=== PATIENT | female | born 1975 | race Caucasian/White ===

== ENCOUNTER 2020-05-25 19:12 | Observation (INO) | payer OTHER, SELFPAY ==
[2020-05-17 14:02] VITALS: BMI 21.4
[2020-05-25 19:12] VITALS: BP 160/106; PULSE 68; RESP 18; TEMP 37; O2SAT 100; BMI 21.6
--- NOTE | 2020-05-25 19:33 | CT_ITS ---
STUDY: CT ABDOMEN AND PELVIS WITHOUT CONTRAST REASON FOR EXAM: Female, 44 years old. RT FLANK PAIN. HEMATURIA. HX OF APPY AND TUBAL LIGATION RADIATION DOSAGE (If Supplied By Facility): CTDIvol = ( 6.53 ) mGy, DLP = ( 300.07 ) mGycm TECHNIQUE: Transaxial images were obtained from the dome of the diaphragm to the symphysis pubis without oral contrast, and without intravenous contrast. Sagittal and coronal images were reconstructed. Individualized dose optimization techniques were used for this CT. COMPARISON: None. FINDINGS: The visualized lung bases are unremarkable. The visualized portions of the heart are within normal limits. Normal liver. Normal gallbladder and extrahepatic biliary system. There is mild splenomegaly. Normal pancreas. Normal bilateral adrenal glands. There is a 0.2 cm stone of the right kidney. There is mild right hydronephrosis. There is a 0.4 cm stone of the right ureter at the L5-S1 level, series 2 image 81/165. Normal left kidney. Normal visualized stomach. Normal small intestine. Normal colon. The appendix is visualized and appears normal. There is atherosclerotic calcification of the abdominal aorta, without a demonstrated aneurysm. Normal inferior vena cava. Normal retroperitoneum. Normal urinary bladder. Normal visualized uterus. There is no free fluid in the abdomen or pelvis. Normal abdominal wall. Normal osseous structures. CT/Abdomen/Pelvis without Cont IMPRESSION: Right renal and ureteral stones with hydronephrosis. Electronically Signed: Dennis Newman MD at 20:11 EDT , Service support ,
[2020-05-25] MEDS: Ondansetron 4 MG/2 ML Vial IV ×2 (19:44→22:00)
[2020-05-25] MEDS: Morphine 4 MG/ML Syringe IV ×2 (19:44→20:30)
[2020-05-25] MEDS: Ketorolac 30 MG/ML Syringe IV (19:44)
--- NOTE | 2020-05-25 20:11 | ED.VISSUMM ---
- ER Visit Summary Date of Service: 05/25/20 Chief Complaint: Right flank pain History of Present Illness: The patient is a 44 F presenting with right flank pain. Patient states this started suddenly today. She complains of nausea vomiting. She noticed blood in her urine. She has a history of kidney stones. She states her previous kidney stone occurred during . She does not recall if this feels similar. She has pain in her right low back radiating to her right lower quadrant. History of previous appendectomy. Physical Examination: Vitals are stable. Patient is afebrile. Alert no acute distress. HEENT exam is unremarkable. Neck is supple. Lungs are clear and equal bilaterally. Heart is regular rate and rhythm. Abdomen is soft nontender nondistended. No guarding or rebound Back: Right CVA tenderness Extremities are unremarkable. Skin is warm and dry. Remainder of exam is unremarkable. Emergency Department Course and Treatment: Patient given morphine, Zofran, Toradol IV. CT flank shows right renal and ureteral stones with hydronephrosis. Patient continues to have pain and was given additional dose of morphine. CBC, chemistries unremarkable. Urinalysis shows over 100 red blood cells, 0-5 white blood cells. Patient continues to have vomiting and was given additional dose of Zofran. Due to her continued pain and vomiting discussed with Dr. Aguilar for admission. Disposition: Admission Impression: Urolithiasis This note was generated with [employer] dictation software. It may contain incorrect words, spelling, and punctuation that were not noted in review of the chart prior to signing ED Disposition - Plan for ED Patient:
[2020-05-25 20:22] LABS: Bacteria 0 SEEN /hpf (None Seen); Mucous, Urine 0 SEEN /hpf (<or=2+); Squamous Epithelial Cells - UA 0 SEEN /hpf (5-10)
[2020-05-25 21:11] LABS: Color, Urine Straw (Yellow); Glucose, Dipstick Normal (Normal); Leukocyte Esterase-Dipstick 25 /ul (Negative); Nitrite-Dipstick Negative (Negative); Occult Blood-Urine 250 /ul (Negative); Protein-Dipstick 30 mg/dl (Negative); Urine Bilirubin Dipstick Negative (Negative); Urine Clarity Cloudy (Clear); Urine Urobilinogen Normal (Normal)
[2020-05-25 21:18] LABS: Ketone-Dipstick 150 mg/dl (Negative)
[2020-05-25 21:28] VITALS: BP 152/87
[2020-05-25 21:29] LABS: Red Blood Cells-Urine > 100 SEEN /hpf (0-5); White Blood Cells 0-5 SEEN /hpf (0-5)
[2020-05-25 22:06] LABS: Absolute Neutrophil Count 8.5 X10^3/uL (2.0-7.7); Basophil# 0.03 X10^3/uL; Basophil% 0.3 % (0-1); Eosinophil# 0.07 X10^3/uL; Eosinophils% 0.7 % (0-5); Hemoglobin 14.1 g/dL (12.0-15.0); Lymphocyte % 12.3 % (19-41); Mean Corp Hgb Conc 34.4 g/dL (32-36); Mean Corpuscular Hgb 31.7 pg (27.0-32.0); Mean Corpuscular Volume 92.1 fL (81-99); Mean Platelet Vol. 10.5 fl (6.2-12.0); Monocyte# 0.56 X10^3/uL; Monocyte% 5.3 % (0-10); NRBC Flagged by Analyzer 0 % (0-5); Neutrophil # 8.54 X10^3/uL (2.7-7.7); Platelet Count 270 K/mm3 (150-450); RBC Distribution Width CV 11.9 % (11.6-14.6); Red Blood Count 4.45 M/mm3 (4.2-5.4); White Blood Count 10.5 K/mm3 (4.4-11.0)
[2020-05-25 22:30] LABS: Anion Gap 9 (5-15); BUN 15 mg/dL (7-18); BUN/Creat Ratio 17.7 RATIO (10-20); Calcium,Total 9.1 mg/dL (8.5-10.1); Chloride 105 mmol/L (98-107); Creatinine, Serum 0.85 mg/dL (0.55-1.02); EST Glomerular Filtration Rate 77 mL/min (>60); Est Glom Filt Rate - Afr Amer 94 mL/min (>60); Glucose 126 mg/dL (74-106); Potassium 3.3 mmol/L (3.5-5.1); Sodium Level 137 mmol/L (136-145)
[2020-05-25 23:21] VITALS: BP 150/81; PULSE 80; RESP 16; TEMP 36.9; O2SAT 98
[2020-05-26 00:09] VITALS: BP 142/78; PULSE 69; RESP 16; TEMP 36.6; O2SAT 100; BMI 22.1
[2020-05-26 00:20] VITALS: BMI 22.2
[2020-05-26] MEDS: Ketorolac 15 MG/ML Vial IV ×2 (00:38→18:50)
[2020-05-26] MEDS: Ondansetron 4 MG/2 ML Vial IV (00:38)
[2020-05-26] MEDS: 0.9% Normal Saline 1,000 ML 150 ML IV ×4 (00:38→18:54)
[2020-05-26] MEDS: 0.9% Saline Lock 10 ML Syringe IV ×2 (00:38→18:51)
[2020-05-26] MEDS: proCHLORPERazine 10 MG/2 ML Vial 12.5 MG IV (02:23)
[2020-05-26] MEDS: Morphine 2 MG/ML Syringe IV (03:00)
[2020-05-26 03:02] VITALS: BP 174/88; PULSE 72; RESP 16; TEMP 36.6; O2SAT 99
[2020-05-26 06:03] VITALS: BP 150/76
--- NOTE | 2020-05-26 07:12 | HP.PCM_ITS ---
Problem List (1) Right ureteral calculus Status: Acute History of Present Illness Date of Admission: 05/25/20 Chief Complaint: Right ureteral calculi The patient is a 44 year old female admitted from the emergency room on May 25, 2020 with intractable nausea vomiting secondary to a very small mid right ureteral calculi the patient may be able to pass a stone. Past Medical History Medical History: Medical History (Last Updated 05/17/20 @ 14:07 by Muriel Price) Endometriosis determined by laparoscopy Onset Date: ~2015 N80.9 removed Melanoma Onset Date: ~2003 C43.9 back of neck- removed Uterine Ablation Onset Date: ~2015 Allergies Sulfa (Sulfonamide Antibiotics) Adverse Reaction (Intermediate, Verified 05/25/20 19:14) Hives Home Medications: Ambulatory Orders Medication Instructions Recorded NK 05/17/20 Surgical History: Surgical History (Last Updated 05/17/20 @ 14:07 by Muriel Price) H/O section Onset Date: ~2011 Z98.891 H/O tubal ligation Onset Date: ~2011 Z98.51 History of appendectomy Onset Date: ~2005 Z90.49 Surgical History: no surgical history Smoking Status: Never smoker Review of Systems Constitutional: Denies: Chills, Fever, Weight Change HEENT: Denies: Head Aches, Sinus Congestion, Sinus Drainage Cardiovascular: Denies: Chest Pain, Palpitations Respiratory: Denies: Cough, Shortness of breath at rest, Sputum production Gastrointestinal: Reports: Nausea, Vomiting. Denies: Abdominal Pain Genitourinary: Denies: Dysuria Musculoskeletal: Denies: Joint Pain, Joint Tenderness Skin: Denies: Rash, Wounds Neurological: Denies: Numbness, Tingling, Focal weakness Psychiatric: Denies: Anxiety, Depression, Homicidal Ideations, Suicidal Ideations Hematologic/ Lymphatic: Denies: Easy Bruising, Easy Bleeding VTE Information - Inpt Only VTE Present on Admission: No VTE Mechan Device Prophylaxis: SCD's Patient Problems: Active and Suspected Problems (Last Updated 05/17/20 @ 14:07 by Muriel Price) Right ureteral calculus (Acute) - Physical Exam Vitals/I&O's: Vital Signs Temp Pulse Resp BP Pulse Ox 97.9 F 72 16 150/76 H 99 05/26/20 03:02 05/26/20 03:02 05/26/20 03:02 05/26/20 06:03 05/26/20 03:02 Oxygen Delivery Method Room Air Weight: 60.5 kg Body Mass Index (BMI) 22.1 Intake and Output for Last 24 Hours 05/24/20 05/25/20 05/26/20 23:59 23:59 23:59 Intake Total 847.5 / 847.5 Output Total 150 / 150 Balance 697.5 / 697.5 General: Alert, Oriented x3, Cooperative HEENT: Atraumatic, PERRLA, EOMI, Normocephalic Neck: Supple, No JVD, Negative Carotid Bruits Lungs: Clear to auscultation, Normal air movement Cardiovascular: Regular rate, No murmurs Abdomen: Bowel Sounds Present, Soft, Non Tender Extremities: No edema, Capillary Refill Less than 3 Seconds Skin: No rashes, No breakdown Musculoskeletal: No Tenderness to Palpation of Joints or Extremities Neurological: Cranial nerves II-XII grossly intact Psych/Mental Status: Normal Affect, Appropriate Laboratory Results 05/25/20 19:30: WBC 10.5, RBC 4.45, Hgb 14.1, Hct 41.0, MCV 92.1, MCH 31.7, MCHC 34.4, RDW Std Deviation 40.0, RDW Coeff of Aristeo 11.9, Plt Count 270, MPV 10.5, Immature Gran % (Auto) 0.400, Neut % (Auto) 81.0 H, Lymph % (Auto) 12.3 L, Gibson % (Auto) 5.3, Eos % (Auto) 0.7, Baso % (Auto) 0.3, Absolute Neuts (auto) 8.5 H, Absolute Lymphs (auto) 1.30, Nucleated RBC % 0 05/25/20 19:30: Sodium 137, Potassium 3.3 L, Chloride 105, Carbon Dioxide 23.0, Anion Gap 9, BUN 15, Creatinine 0.85, Estim Creat Clear Calc 76.00, Est GFR (MDRD) Af Amer 94, Est GFR (MDRD) Non-Af 77, BUN/Creatinine Ratio 17.7, Glucose 126 H, Calcium 9.1 05/25/20 20:15: Urine Color Straw, Urine Clarity Cloudy, Urine pH 7.0, Ur Specific [place] 1.010, Urine Protein 30 H, Urine Glucose (UA) Normal, Urine Ketones 150 H, Urine Occult Blood 250 H, Urine Nitrite Negative, Urine Bilirubin Negative, Urine Urobilinogen Normal, Ur Leukocyte Esterase 25 H, Urine RBC > 100 SEEN, Urine WBC 0-5 SEEN, Ur Squamous Epith Cells 0 SEEN, Urine Bacteria 0 SEEN, Urine Mucus 0 SEEN Current Medications Sodium Chloride () 1,000 mls @ 150 mls/hr IV .[id number] DAIANA Last Admin: 05/26/20 06:05 Dose: 150 mls/hr Documented by: Sodium Chloride () 250 mls @ 15 mls/hr IV .[id number] PRN PRN Reason: Saline Flush Sodium Chloride () 250 mls @ 15 mls/hr IV .[id number] PRN PRN Reason: Additional IVPB Infusion Ketorolac Tromethamine (Toradol (Bkc)) 15 mg IV Q6H PRN PRN PRN Reason: Pain Score 4-10/10 Stop: 05/31/20 00:18 Last Admin: 05/26/20 00:38 Dose: 15 mg Documented by: Morphine Sulfate () 2 mg IV Q2H PRN PRN PRN Reason: Pain Score 6-10/10 Last Admin: 05/26/20 03:00 Dose: 2 mg Documented by: Ondansetron HCl (Zofran) 4 mg IV Q6H PRN PRN PRN Reason: NAUSEA/VOMITING Last Admin: 05/26/20 00:38 Dose: 4 mg Documented by: Prochlorperazine Edisylate (Compazine Iv) 12.5 mg IV Q6H PRN PRN PRN Reason: NAUSEA/VOMITING Last Admin: 05/26/20 02:23 Dose: 12.5 mg Documented by: Sodium Chloride () 10 - 40 ml IV UD PRN PRN Reason: SALINE FLUSH Last Admin: 05/26/20 00:38 Dose: 10 ml Documented by: Assessment/Plan All Active Problems (Last Updated 05/17/20 @ 14:07 by Muriel Price) Right ureteral calculus (Acute) Admit for hydration control of nausea vomiting may proceed with intervention if fails to pass a stone.
[2020-05-26 09:14] VITALS: BP 144/76; PULSE 60; RESP 18; TEMP 37.1; O2SAT 100
[2020-05-26 15:41] VITALS: BP 152/82; PULSE 66; RESP 18; TEMP 36.9; O2SAT 100
[2020-05-26 21:06] VITALS: BP 148/92; PULSE 73; RESP 18; TEMP 37.3; O2SAT 98
[2020-05-27] VITALS (7 sets, daily range): BP systolic 111–142; BP diastolic 61–79; PULSE 58–81; RESP 16; TEMP 36.6–37.2; O2SAT 93–98; BMI 23.1
[2020-05-27] MEDS: 0.9% Normal Saline 1,000 ML 150 ML IV (01:39)
[2020-05-27] MEDS: 0.9% Saline Lock 10 ML Syringe IV ×2 (05:13→06:19)
[2020-05-27] MEDS: Ketorolac 15 MG/ML Vial IV (05:13)
[2020-05-27] MEDS: Ondansetron 4 MG/2 ML Vial IV (06:19)
[2020-05-27] MEDS: Morphine 2 MG/ML Syringe IV (06:19)
--- NOTE | 2020-05-27 06:43 | NURSING ---
Called [facility], Muriel LEIVA advised they are ready for pt to come down. transported down at 0641hrs by JEIMY Joyce.
--- NOTE | 2020-05-27 07:16 | PCM.PROGNOTE ---
Patient Problems: Active and Suspected Problems (Last Updated 05/17/20 @ 14:07 by Muriel Price) Right ureteral calculus (Acute) Subjective: 44-year-old female still having severe pain from her right mid ureteral calculi KUB today demonstrates a stone still in the mid ureter. Plan to proceed with surgery - Physical Exam Vitals/I&O's: Vital Signs Temp Pulse Resp BP Pulse Ox 99 F 64 16 142/79 H 98 05/27/20 04:44 05/27/20 04:44 05/27/20 04:44 05/27/20 04:44 05/27/20 04:44 Oxygen Delivery Method Room Air Weight: 62.9 kg Body Mass Index (BMI) 23.1 Intake and Output for Last 24 Hours 05/25/20 05/26/20 05/27/20 23:59 23:59 23:59 Intake Total 3155.0 / 3355.0 1200 / 1200 Output Total 1100 / 1600 925 / 925 Balance 2055.0 / 1755.0 275 / 275 General: Alert, Oriented x3, Cooperative HEENT: Atraumatic, PERRLA, EOMI, Normocephalic Neck: Supple, No JVD, Negative Carotid Bruits Lungs: Clear to auscultation, Normal air movement Cardiovascular: Regular rate, No murmurs Abdomen: Bowel Sounds Present, Soft, Non Tender Extremities: No edema, Capillary Refill Less than 3 Seconds Skin: No rashes, No breakdown Musculoskeletal: No Tenderness to Palpation of Joints or Extremities Neurological: Cranial nerves II-XII grossly intact Psych/Mental Status: Normal Affect, Appropriate Current Medications Sodium Chloride () 1,000 mls @ 150 mls/hr IV .Q6H40M DAIANA Last Admin: 05/27/20 01:39 Dose: 150 mls/hr Documented by: Sodium Chloride () 250 mls @ 15 mls/hr IV .[id number] PRN PRN Reason: Saline Flush Sodium Chloride () 250 mls @ 15 mls/hr IV .[id number] PRN PRN Reason: Additional IVPB Infusion Cefazolin Sodium () 1 gm in 50 mls @ 100 mls/hr IV PREOP ONE Stop: 05/27/20 07:33 Ketorolac Tromethamine (Toradol (Bkc)) 15 mg IV Q6H PRN PRN PRN Reason: Pain Score 4-10/10 Stop: 05/31/20 00:18 Last Admin: 05/27/20 05:13 Dose: 15 mg Documented by: Morphine Sulfate () 2 mg IV Q2H PRN PRN PRN Reason: Pain Score 6-10/10 Last Admin: 05/27/20 06:19 Dose: 2 mg Documented by: Ondansetron HCl (Zofran) 4 mg IV Q6H PRN PRN PRN Reason: NAUSEA/VOMITING Last Admin: 05/27/20 06:19 Dose: 4 mg Documented by: Prochlorperazine Edisylate (Compazine Iv) 12.5 mg IV Q6H PRN PRN PRN Reason: NAUSEA/VOMITING Last Admin: 05/26/20 02:23 Dose: 12.5 mg Documented by: Sodium Chloride () 10 - 40 ml IV UD PRN PRN Reason: SALINE FLUSH Last Admin: 05/27/20 06:19 Dose: 10 ml Documented by: Medical Necessity - Tobacco Use Smoking Status: Never smoker Assessment/Plan All Active Problems (Last Updated 05/17/20 @ 14:07 by Muriel Price) Right ureteral calculus (Acute) 44-year-old female with obstructing stone in the mid ureter plan to proceed with ureteroscopy laser lithotripsy of stone and stent placement on the right side.
--- NOTE | 2020-05-27 07:17 | DCINST_ITS ---
Discharge Diet: No Restrictions Discharge Activity: Return to Normal Activity, May Not Drive - for 2 days. Additional Activity Instructions:: Please be aware that pain medications may cause nausea. You should typically eat light foods as you take your pain medication. Pain medication may cause constipation, if this is a problem for you, please discuss with your doctor. Call your doctor if you observe: Fever of 101 or Higher Instructions: Ureteral Stents Allergies/Adverse Reactions: Allergies Sulfa (Sulfonamide Antibiotics) Adverse Reaction (Intermediate, Verified 05/25/20 19:14) Hives Medications to take at Discharge Ciprofloxacin [Cipro] 500 mg PO BID #6 tab 05/26/20 Hydrocodone Bitart/Apap 5-325 [[place] 5MG-325MG] 1 tab PO Q4H PRN PRN 5 Days #20 tab 05/26/20 Prochlorperazine Maleate [Compazine] 10 mg PO Q6H PRN PRN 5 Days #10 tab 05/26/20 The following prescriptions were given: Ciprofloxacin [Cipro] 500 mg PO BID #6 tab Transmission Status: Received by [facility] 181 Prochlorperazine Maleate [Compazine] 10 mg PO Q6H PRN PRN 5 Days #10 tab PRN Reason: Nausea Transmission Status: Received by [facility] 181 Hydrocodone Bitart/Apap 5-325 [[place] 5MG-325MG] 1 tab PO Q4H PRN PRN 5 Days #20 tab PRN Reason: Pain Transmission Status: Received by [facility] [id number] Primary Care Physician: Care Physician,No Primary [Primary Care Provider] - Test Results: Test results from this visit will be discussed in further detail at your follow- up appointment, if applicable. Please Follow Up With: Elías Aguilar MD - [phone] When: please call to make an appointment.
[2020-05-27] MEDS: Cefazolin 1 GM/50 ML BAG IV (07:22)
--- NOTE | 2020-05-27 07:33 | RAD_ITS ---
STUDY: X-RAY - ABDOMEN/PELVIS REASON FOR EXAM: Female, 44 years old. RT URETERAL STONE TECHNIQUE: Single AP view of the abdomen / pelvis. COMPARISON: None. FINDINGS: Normal visualized lung bases. There is an abundance of fecal material throughout the colon. There is a 2.5 mm rounded calcification in the right lower abdomen at the level of the right L4-L5 disc space level. Normal soft tissue structures. Normal visualized osseous structures. RAD/Abdomen Single View IMPRESSION: 2.5 mm rounded calcification on the right side at the level of the L4-L5 level. Electronically Signed: Ulisses Ny, at 7:36 EDT , Service support ,
[2020-05-27] MEDS: Lubricating Jelly 60 GM Tube 30 GM TOPICAL (07:36)
--- NOTE | 2020-05-27 07:47 | PCM.OPRPT ---
Problem List (1) Right ureteral calculus Status: Acute Report of Operation Date of Procedure: 05/27/20 Pre-Operative Diagnosis: Right mid ureteral calculi Post-Operative Diagnosis: Same Surgery/Procedure Performed:: Cystoscopy, right retrograde pyelogram interpretation fluoroscopic images, balloon dilation of the right ureter, right ureteroscopy basket extraction of stone and right stent placement Description of Surgical Findings:: 44-year-old female taken back to the operating room to smooth induction of general anesthesia she was placed in dorsolithotomy position the urethra vaginally are prepped and draped in usual sterile fashion went into the bladder with a 21 Martiniquais rigid cystourethroscope identified the right ureteral orifice cannulated this with a wire advanced a wire up into the right kidney, over the wire I then advanced a 12 Martiniqu[place] 10 cm balloon dilator and balloon dilated for 2 minutes to the distal right ureter, I then went over the wire with a flexible ureteroscope got into the kidney checked the upper pole. midpole. lower pole the kidney. no major fragments were seen no free-floating stones I then worked my way down the ureter and I could feel this stone against the scope the worked my way with down the ureter we then extracted the stone with a basket from the ureter. An attempt was made to save the stone however we drained the bladder we could not find the stone fragment anymore but was clearly seen outside the ureter and the bladder. I then advanced a wire up into the right kidney over the wire place a stent left the string on the stent and she will follow-up next week in my office to remove the stent. Procedure went well stone extracted and stent placed on the right side. Type of Anesthesia:: General Drains: stent right - Admit VTE Documentation VTE Present on Admission: No
== END 2020-05-27 12:33 | disposition home or self-care (01) ==
LOC: ED 19:44 → MS3 23:04
PROVIDERS: Admitting Provider Urology; Emergency Provider Emergency Medicine; Visit Provider Urology
PROC: 0TJ98ZZ Inspection of Ureter, Via Natural or Artificial Opening Endoscopic (ICD-10-PCS; CPT 52352; principal; 2020-05-27 07:20)
DX: N13.2 Hydronephrosis with renal and ureteral calculous obstruction (principal); Z85.820 Personal history of malignant melanoma of skin
CPT/HCPCS: 00918; 52332; 52352; 74018; 74176; 76000; 80048; 81001; 85025; 96361; 96374; 96375; 96376; 99218; 99284; J7030; A4216; C1769; C2617; G0378; J2405

== ENCOUNTER → 2020-06-07 11:33 | Outpatient (CLI) | payer OTHER, SELFPAY ==
[2020-05-17 14:02] VITALS: BMI 21.4
[2020-05-27 04:44] VITALS: BMI 23.1
--- NOTE | 2020-06-07 11:35 | US_ITS ---
STUDY: ULTRASOUND OF THE FEMALE PELVIS - COMPLETE REASON FOR EXAM: Female, 44 years old. LLQ PELVIC PAIN ENDOMETRIAL ABLATION 2016 LMP: 2016 TECHNIQUE: Transabdominal and Transvaginal TECHNICAL QUALITY: Adequate. COMPARISON: None. FINDINGS: The uterus is anteverted and is in a midline position. The uterus measures 9.6 cm x 6.2 cm x 5.4 cm. There is a Nabothian cyst of the cervix. The endometrium measures 4.0 mm in thickness, and is hyperechoic. There is no demonstrated endometrial mass. 3 fibroids are seen. The largest measures 2.4 cm x 2.1 cm x 1.8 cm. I.U.D. - The patient does not have an I.U.D. The right ovary is visualized. The right ovary measures 3 cm x 2.6 cm x 1.8 cm. There is no right ovarian cyst or ovarian mass. There is no visualized right adnexal mass or complex lesion. There is normal arterial and normal venous vascularity. The left ovary is non-visualized. There is no fluid in the cul-de-sac. The pre void volume of the bladder was 468 ml. Polycystic ovary disease: No. US/Transvaginal Non- IMPRESSION: 3 small uterine fibroids. Electronically Signed: Ulisses Ny, at 15:33 EDT , Service support ,
--- NOTE | 2020-06-07 11:35 | US_ITS ---
STUDY: ULTRASOUND OF THE FEMALE PELVIS - COMPLETE REASON FOR EXAM: Female, 44 years old. LLQ PELVIC PAIN ENDOMETRIAL ABLATION 2016 LMP: 2016 TECHNIQUE: Transabdominal and Transvaginal TECHNICAL QUALITY: Adequate. COMPARISON: None. FINDINGS: The uterus is anteverted and is in a midline position. The uterus measures 9.6 cm x 6.2 cm x 5.4 cm. There is a Nabothian cyst of the cervix. The endometrium measures 4.0 mm in thickness, and is hyperechoic. There is no demonstrated endometrial mass. 3 fibroids are seen. The largest measures 2.4 cm x 2.1 cm x 1.8 cm. I.U.D. - The patient does not have an I.U.D. The right ovary is visualized. The right ovary measures 3 cm x 2.6 cm x 1.8 cm. There is no right ovarian cyst or ovarian mass. There is no visualized right adnexal mass or complex lesion. There is normal arterial and normal venous vascularity. The left ovary is non-visualized. There is no fluid in the cul-de-sac. The pre void volume of the bladder was 468 ml. Polycystic ovary disease: No. US/Pelvic (Non ) IMPRESSION: 3 small uterine fibroids. Electronically Signed: Ulisses Ny, at 15:33 EDT , Service support ,
== END ==
PROVIDERS: Referring Provider Obstetrics & Gynecology; Visit Provider Obstetrics & Gynecology
DX: R10.2 Pelvic and perineal pain (principal)
CPT/HCPCS: 76830; 76856; 93976

== ENCOUNTER → 2020-10-22 12:20 | Outpatient (CLI) | payer OTHER, SELFPAY ==
[2020-05-27 04:44] VITALS: BMI 23.1
[2020-09-20 10:11] VITALS: BMI 22.0
--- NOTE | 2020-10-22 12:22 | BI_ITS ---
MAMMOGRAPHY - BILATERAL SCREENING REASON FOR EXAM: Female, 44 years old. Routine annual screening examination. PERTINENT HISTORY: Grandmother with breast cancer. TECHNIQUE: Digital bilateral breast ping (3D mammographic acquisition) in the CC and MLO projections. 2-D mediolateral oblique (MLO) and craniocaudad (CC) views of both breasts were obtained. CAD: Full Field Digital Mammography with Computer Added Detection was performed. COMPARISON: Comparison is made with prior outside examination dated 01/17/2019. FINDINGS: Breast Composition: The breasts are heterogeneously dense, which may obscure small masses. There are no dominant masses or suspicious calcifications. No other significant abnormalities are identified. There has been no significant change since the prior study. BI/SCRN MAMM (CAD)W/PING BILAT IMPRESSION: Stable bilateral screening mammogram. Yearly follow-up mammogram recommended. (A) ASSESSMENT CATEGORY: BIRADS Category 1: Negative. A letter regarding these results will be sent to the patient by the facility within 30 days. Approximately 10% of breast cancers are not detected by mammography. A normal mammogram should not delay biopsy of a clinically suspicious abnormality. [id number] Electronically Signed: Ulisses Ny MD at 13:48 EST , Service support ,
== END ==
PROVIDERS: Referring Provider Obstetrics & Gynecology; Visit Provider Obstetrics & Gynecology
DX: Z12.31 Encounter for screening mammogram for malignant neoplasm of breast (principal)
CPT/HCPCS: 77063; 77067